=== PATIENT | female | born 1970 | race Caucasian/White ===

== ENCOUNTER 2023-05-30 08:47 | Day surgery (SDC) | payer BC ==
[2023-05-30] MEDS ORDERED: Lactated Ringers 1,000 ML IV SCH (09:15)
[2023-05-30] MEDS ORDERED: Propofol 200 MG/20 ML SDV ONE (11:54)
== END 2023-05-30 13:31 | disposition home or self-care (01) ==
LOC: JP.SDS 08:47
PROVIDERS: ATTEND Student in an Organized Health Care Education/Training Program
DX: Z12.11 Encounter for screening for malignant neoplasm of colon (principal); K57.30 Diverticulosis of large intestine without perforation or abscess without bleeding; J45.990 Exercise induced bronchospasm; F41.9 Anxiety disorder, unspecified
CPT/HCPCS: 45378; J2704; J7120